=== PATIENT | female | born 1990 | race Caucasian/White ===

== ENCOUNTER 2024-12-17 14:10 | Emergency (ER) | payer OTHER, SELFPAY ==
[2024-12-17 14:23] VITALS: BP 152/93
[2024-12-17 15:04] LABS: % Basophils 0.3 % (0-2); % Eosinophils 0.1 % (0-6); % Immature Granulocytes 0.4 % (0-0.5); % Lymphocytes 13.5 % (20.5-51.1); % Monocytes 3.5 % (1.7-9.3); % Neutrophils 82.2 % (42.2-75.2); Absolute Immature Granulocytes 0.1 10^3/uL (0-0.05); Absolute Lymphocytes 1.7 10^3/uL (1.2-3.4); Absolute Monocytes 0.5 10^3/uL (0.1-0.6); Absolute Neutrophils 10.5 10^3/uL (1.4-6.5); Hemoglobin 12.8 g/dL (12.0-16.0); Mean Corp Hgb Conc. 33.7 g/dL (33.0-37.0); Mean Corpuscular Hgb 29.5 pg (27.0-31.0); Mean Corpuscular Volume 87.6 fL (81.0-99.0); Mean Platelet Volume 9.3 fL (7.4-10.4); Nucleated Red Blood Cells % 0 %; Platelet Count 284 10^3/uL (130-400); Red Blood Cell Count 4.34 10^6/uL (4.20-5.40); Red Cell Dist. Width 12.9 % (11.5-14.5); White Blood Cell Count 12.7 10^3/uL (4.8-10.8)
[2024-12-17 15:20] LABS: ALT (SGPT) 31 U/L (0-35); AST (SGOT) 29 U/L (14-36); Alkaline Phosphatase 97 U/L (38-126); Blood Urea Nitrogen 11 mg/dl (7-17); Calcium 10.2 mg/dl (8.4-10.2); Carbon Dioxide 25 mmol/L (22-30); Chloride 97 mmol/L (98-107); Glucose 97 mg/dl (70-99); Potassium 4.2 mmol/L (3.5-5.1); Sodium 134 mmol/L (135-145); Total Bilirubin 0.6 mg/dl (0.2-1.3); Total Protein 7.7 g/dl (6.3-8.2); eGFR > 60.00
--- NOTE | 2024-12-17 16:25 | ED.GENMED ---
History of Present Illness
General
Chief Complaint: Problems
Source: patient
Exam Limitations: none
Time Seen by Provider: 12/17/24 16:05
Nursing documentation reviewed up to this point in time: agreed with
History of Present Illness
History of Present Illness:
Patient is a 34y.o presenting to the emergency department with right pelvic pain and lightheadedness currently being treated for right tubal ectopic . Patient has been followed by [facility] and was found to have a right
tubal ectopic . She has received 3 doses of IM methotrexate, the most recent being this past Tuesday as hCG levels continue to rise initially. Patient has been having persistent vaginal bleeding and states that today she had pain in her
right pelvic region associated with lightheadedness. Patient denies any fever, true dizziness, chest pain, or shortness of breath.
By my assessment�patient symptoms have essentially resolved.
Patient does report a history of a miscarriage approximate 3 months ago although has never had an ectopic before.
She follows with [facility] as her primary TOWNSHIP CLERK although has not been seen yet during this . Patient believes she is blood type B positive.
Review of Systems
Review of Systems
Allergies reviewed?: Yes
All Other Systems: ROS reviewed and negative except as documented in HPI and ROS
Phy Exam
Physical Exam
Physical Exam:
Vitals: Patient's vital signs are stable. Afebrile. Hemodynamically stable
General: Patient is well appearing, no acute distress. Nontoxic appearing
Skin: Warm and dry, no rashes or lesions
Head: Normocephalic, atraumatic
Eyes: Sclera nonicteric. EOMs intact. No nystagmus.
Throat: Protecting airway
Neck: Normal ROM, no cervical spine tenderness, no meningismus
Cardiac: Regular rate and rhythm, no murmurs.
Pulm: Normal respiratory effort, no wheezes, rales, rhonchi heard on exam.
Abdomen: Abdomen soft and nontender. No focal right pelvic tenderness. No rebound tenderness or guarding
Extremities: No evidence of cyanosis or edema. Palpable DP pulse bilaterally
Neuro: AAOx3. Grossly intact.
Psychiatric: Normal affect.
Course
Orders/Labs/Results
Orders:
Orders
12/17/24 14:28
US Pelvis W Transvag Combined Urgent
Comment: known ectopic
Reason For Exam: RLQ abd pain
12/17/24 14:30
Type And Crossmatch [Type+Screen] Urgent
Beta HCG Quantitative Urgent
Is this a screen?: No
Complete Blood Count/With Diff Urgent
Comprehensive Metabolic Panel Urgent
12/17/24 18:03
Consult TOWNSHIP CLERK [TOWNSHIP CLERK CONSULT] Urgent
Consulting Provider: Denice Macias
Was physician already notified: Yes
Abnormal Lab Results
12/17/24
14:30
WBC 12.7 H 10^3/uL
(4.8-10.8)
Abs Immat Gran (auto) 0.1 H 10^3/uL
(0-0.05)
Absolute Neuts (auto) 10.5 H 10^3/uL
(1.4-6.5)
Neutrophils % 82.2 H %
(42.2-75.2)
Lymphocytes % 13.5 L %
(20.5-51.1)
Sodium 134 L mmol/L
(135-145)
Chloride 97 L mmol/L
(98-107)
12/17/24 14:30
12/17/24 14:30
Vital Signs
Initial and Last Documented VS:
Initial Vital Signs
Temp Pulse Resp BP Pulse Ox
97.7 F 78 20 152/93 100
12/17/24 14:23 12/17/24 14:23 12/17/24 14:23 12/17/24 14:23 12/17/24 14:23
Last Documented Vital Signs
Temp Pulse Resp BP Pulse Ox
97.7 F 88 20 133/78 99
12/17/24 14:23 12/17/24 16:46 12/17/24 14:23 12/17/24 17:00 12/17/24 17:30
Information
Weeks gestation: N/A
Location: Location: (Right ovary-ectopic)
MDM/Problems Addressed
Differential Diagnosis Includes:
Not limited to: Ruptured ectopic , ectopic , subchorionic hematoma, threatened , etc.
MDM/Problems Addressed:
34-year-old female presenting with right pelvic pain and lightheadedness in setting of known right tubal ectopic and persistent vaginal bleeding. She has had 3 doses of IM methotrexate. No associated fever, chest pain, shortness of
breath. Vitals stable. Physical exam as above. Patient very well-appearing, in no apparent distress. She is stable. Her abdomen is soft with no abdominal tenderness. Cardio/pulmonary assessment unremarkable. Basic labs were sent in triage
significant for mild leukocytosis of 12.7. Chemistry unremarkable. Beta-hCG of 1027.5. In comparison to patient's most recent blood tests this has decreased from 1818 on 12/13/2024. Pelvic ultrasound pending. Patient hemodynamically stable.
Update: Pelvic ultrasound shows no intrauterine however does note structure near her right ovary concerning for ectopic . There is no evidence of free fluid in pelvis. Patient remains asymptomatic and hemodynamically stable.
Case was discussed with TOWNSHIP CLERK on-call, Dr. Macias who was down to evaluate patient at bedside. Given hCG seems to be trending down appropriately at this time�plan will be to discharge home with close continuous follow-up with [facility]
for repeat hCG checks. Patient has B + blood type�no RhoGAM. Very close return precautions discussed. Patient expressed verbal understanding. She was given copy of ultrasound report for follow-up.
Chronic conditions affecting care:
N/A
Acute Exacerbation and/or Progression of Chronic Illness:
N/A
*Radiology
Radiology exam reviewed: radiology read reviewed (Structure in your right ovary concerning for ectopic )
*Pulse Oximetry
Patient hypoxic: no
*EKG
Interpreted by ED Provider?: NA
*Emery Grinder Interpretation
Rate: Emery Grinder- N/A
*Critical Care Note
Total Time (30-74mins, 75-104mins- exclusive of procedures): Not Applicable
Patient Management
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
ED Attending Note
-
Portions of this chart may have been created with voice recognition software.� Occasional wrong word or��sound alike� substitutions may have occurred due to the inherent limitations of voice recognition software.
Discharge Plan
Departure
Patient Disposition: Home (Routine Discharge)
Date of Disposition: 12/17/24
Time of Disposition: 18:09
Patient with high blood pressure during this ER visit?: Yes
Condition: Good
Covid-19: Not Applicable
Discharge Problem:
Ectopic
Instructions: Ectopic ED, BLOOD PRESSURE
Prescriptions:
No Action
levothyroxine [Synthroid] 25 mcg Tablet
25 mcg PO DAILY
prenat.vits,mil,wqf-frvb-wtehr Tablet
1 tab PO DAILY
acetaminophen 325 mg Tablet
650 mg PO Q4HPRN PRN (Reason: mild pain) Qty: 0 0RF
sennosides-docusate sodium [Senna Plus] 8.6-50 mg Tablet
1 tab PO DAILYPRN PRN (Reason: constipation) Qty: 0 0RF
ferrous sulfate [FeroSul] 325 mg (65 mg iron) Tablet
325 mg PO DAILY Qty: 30 0RF
ibuprofen 600 mg Tablet
600 mg PO Q6HPRN PRN (Reason: moderate pain/cramps) Qty: 45 0RF
oxycodone-acetaminophen [Percocet] 5-325 mg tablet
1 tab PO Q6H PRN (Reason: pain) Qty: 7 0RF
Referrals:
Krista Barroso PA-C [Family Provider] -
Activity Restrictions/Additional Instructions:
RETURN TO THE EMERGENCY DEPARTMENT WITH ANY HIGH FEVERS, SEVERE ABDOMINAL/PELVIC PAIN, LIGHTHEADEDNESS/DIZZINESS, SHORTNESS OF BREATH, PERSISTENT HEAVY BLEEDING, OR ANY OTHER CONCERNS
-As discussed - your HCG was 1027.5 today in the ED. It is important that you continue to have this monitored with the fertility clinic.
-Stay well hydrated.
-Follow-up with fertility clinic/ OBGYN as needed for further eval/management
Monitor your symptoms closely and return to the emergency department with any acute worsening/new symptoms or any other concerns
Interventions
Interventions:
*Risk Screen - Suicide Last Done: 12/17/24 14:23
*General Assessment Last Done: 12/17/24 14:23
*Neglect/Abuse Screening Last Done: 12/17/24 18:47
*ED- Fall Risk Assessment Last Done: 12/17/24 18:30
*ED COVID-19 Vaccine History Last Done: 12/17/24 18:30
*Nursing Disposition Last Done: 12/17/24 18:47
ED-Female Genitourinary Assessment Last Done: 12/17/24 18:46
Discharge Date and Time
Discharge Date/Time: 12/17/24 18:50
Print Language: ARMENIAN
[2024-12-17 16:41] VITALS: BP 123/75
[2024-12-17 16:46] VITALS: BP 123/75
[2024-12-17 17:00] VITALS: BP 133/78
--- NOTE | 2024-12-17 18:47 | W.PN.UPDATE ---
Update Note
Progress Note Update
I received message from ER regarding this patient and I spoke with Dr. Allen about her as well to confirm plan of care.
Patient has a known ectopic and on 12/14 received her 3rd dose of MTX. Actually had labs done at [facility] today and her HCG is finally starting to drop. Per records from [facility] HCG today 1446 (12/13 1817). Patient initially presented to ER with
right pelvic pain and feeling light headed but states these symptoms have now resolved. she is hemodynamically stable, benign exam (per ER provider), and US showing a right adnexal mass 1.9cm with NO FREE FLUID. HCG here is 1027.5. Thus at this
point concern for ruptured ectopic is low. Per Dr. Allen, he is encouraged by the fact that HCG is starting to drop and as long as she is stable with no s/sx of tubal rupture, then surgical intervention is not needed at this time and his office
will continue with outpatient HCG monitoring and management. Patient was d/c home.
== END 2024-12-17 18:50 | disposition home or self-care (01) ==
LOC: EMR 14:10
PROVIDERS: Emergency Medicine; CONSULT PHYSICIAN Obstetrics & Gynecology; EMERGENCY PHYSICIAN Student in an Organized Health Care Education/Training Program; FAMILY PHYSICIAN Physician Assistant
DX: O00.101 Right tubal pregnancy without intrauterine pregnancy (principal); Z3A.00 Weeks of gestation of pregnancy not specified
CPT/HCPCS: 99284; 76830; 76856; 80053; 84702; 85025; 86850; 86900; 86901